=== PATIENT | male | born 2000 | race Caucasian/White ===

== ENCOUNTER 2022-03-16 18:35 | Emergency (ER) | payer MEDICAID, OTHER ==
[~2022-03-16] VITALS: Ht 185.4 cm; Wt 72.7 kg
[~2022-03-16 18:35] MED LIST: NOCURR
[2022-03-16 18:38] VITALS: BP 116/64
[2022-03-16 20:44] LABS: APPEARANCE,URINE TURBID (CLEAR); BILIRUBIN,URINE NEGATIVE (NEGATIVE); GLUCOSE, URINE (UA) NEGATIVE (NEGATIVE); KETONES,URINE NEGATIVE (NEGATIVE); LEUKOCYTE ESTERASE ,URINE LARGE (NEGATIVE); NITRATE,URINE NEGATIVE (NEGATIVE); OCCULT BLOOD,URINE LARGE (NEGATIVE); PH,URINE 5.5 (5.0-8.0); PROTEIN,URINE 100-200,SEE CONFIRM mg/dL (NEGATIVE); SPECIFIC GRAVITIY, URINE 1.024 (1.003-1.030); UROBILINOGEN,URINE <=1.0 mg/dL (<=1.0)
[2022-03-16 20:53] LABS: SULFOSALICYLIC ACID,URINE 1+ (Negative)
[2022-03-16 20:54] LABS: BACTERIA,URINE Few /HPF (None Seen); RBC,URINE 26-50 /HPF (0-2); WBC,URINE 26-50 /HPF (0-5)
== END 2022-03-16 21:05 | disposition home or self-care (01) ==
LOC: EMS 18:38
DX: N39.0 Urinary tract infection, site not specified (principal); Z98.890 Other specified postprocedural states
CPT/HCPCS: 81001; 81002; 87086; 99283